=== PATIENT | female | born 1935 | race Caucasian/White ===

== ENCOUNTER 2016-12-23 14:19 | Emergency (ER) | payer OTHER ==
--- NOTE | 2016-12-23 15:02 | EDPHY ---
General - History Smoking Status: Never smoked Narrative: CHIEF COMPLAINT: Fall, facial injury, wrist pain HISTORY OF PRESENT ILLNESS: Patient presents with . She reports a mechanical fall that happened within the past hour to an hour half. [place], landing on the sidewalk. She struck her face on the concrete. She did lose consciousness briefly. She has pain face. She has pain in the left wrist and hand. The facial pain is mild. She does have some bleeding from the mouth. She has no dental pain. She has no neck pain of any kind. Minimal headache. She has severe pain in the left wrist and minimal pain left hand. No numbness of extremities. Some tingling of the left hand. No chest pain. No back pain. No abdominal pain. No saddle anesthesia. No incontinence. No lower extremity complaints. Does take Coumadin for AFib. No other associated complaints or modifying factors. REVIEW OF SYSTEMS: Ten systems reviewed and are negative unless otherwise noted in the HPI PCP: Dr. Bonilla SPECIALISTS: None PAST MEDICAL HISTORY: AFib, hypertension, arthritis PAST SURGICAL HISTORY: None recently or pertinent SOCIAL HISTORY: Nonsmoker. Lives with her near [facility]. Works at [employer] FAMILY HISTORY: Noncontributory EXAMINATION General Appearance: Alert, no distress Head: normocephalic. Abrasions and ecchymosis to the left side of the face. There is lip laceration as below. No Duggan sign. Some ecchymosis around the left periorbital region Eyes: Pupils equal and round, no conjunctival pallor or injection ENT, Mouth: Mucous membranes moist. There are multiple areas of dry blood making the examination difficult. No obvious fracture through the gum line. Airway is patent. No dental fracture noted. Neck: Normal inspection, supple, non-tender. No midline tenderness. No crepitus. No step-off or deformity. Respiratory: Lungs are clear to auscultation. No wheeze, rhonchi or crackles Cardiovascular: Regular rate. Regular rhythm. Gastrointestinal: Abdomen is soft and nontender. No distention. No tympany. No rigidity. Back: No soft tissue tenderness. No midline tenderness. No crepitus, step-off or deformity. Range of motion intact. Neurological: GCS 15. A&O, nonfocal, normal gait. Strength is symmetric. No pronator drift. No dysmetria. Skin: Warm and dry, no rash. Multiple areas of abrasion to the left side of the face forehead. Laceration to the upper lip not involving the vermilion border. 3 cm length. No mucosal laceration noted. Extremities: Tenderness and mild dorsal deformity of the left wrist. There is mild tenderness of the left hand. No tenderness of the left elbow or shoulder. Range of motion of the left upper extremity difficult to test due to pain. Neurovascular intact distal to the pain. Lower extremities range of motion is symmetric. Right upper extremity painless range of motion. Psychiatric: Mood and affect normal DIFFERENTIAL DIAGNOSES: Including but not limited to intracranial hemorrhage, concussion, fracture, contusion, hematoma, sprain, strain MDM: 2:45 p.m. Mechanical fall with facial trauma loss of consciousness. She is awake alert no acute distress but does have outward signs of trauma and does take Coumadin. I have ordered stat CT scans of the head and cervical spine. She has no neck pain of any kind. Plain films of the chest, wrist and hand are pending. She is in no acute distress. 3:30 p.m. Case discussed with Dr. Schofield. No acute findings on the CT scans of the head or cervical spine. Plain films pending. 3:55 p.m. Plain films of the wrist and hand revealed comminuted, contacted distal radial ulnar styloid fractures. There also appears to be a fracture of the base of the thumb. I have re-evaluated the patient. She is neuro intact in this extremity. I will discuss with orthopedist for the recommendation. 4:04 p.m. Case discussed with orthopedist Dr. Jones. He reviewed the x-ray with me. He recommends that we put the patient in a sugar-tong splint and while doing so, slightly applied traction and put the wrist in slight flexion. He does not recommend an attempt to close reduction otherwise. He would like to see the patient in his office Sunday or Sunday. 5:00 p.m. Left upper extremity sugar-tong splint in place. I placed her in slight flexion as instructed by Dr. jones. She is neurovascular intact postprocedure. We discussed follow up with him early this week. We discussed lip laceration wound care. We discussed ED precautions. She is ambulatory without assistance. She will be discharged home stable condition. PROCEDURE: Splint placement Indication: Left distal radial fracture Consent: Verbal Location: Left distal radius and ulnar styloid Description: Sugar-tong splint place with mild flexion. Tolerated well. Neurovascular intact pre and postprocedure. Complications: None PROCEDURE: Infraorbital block Indication: Lip laceration Consent: Verbal Location: Left upper lip Anesthesia: Lidocaine 1% plain, 0.25% Marcaine plain, 5mL Description: The maxillary mucosa was prepped with Hurricaine spray topical. The above was infused infraorbital region after ensuring that the needle was not in a vascular space. Good anesthesia obtained. No complication. Complications: None PROCEDURE: Laceration repair Consent: Verbal Location: Left upper lip, not involving the vermilion border but does traverse into the oral mucosa Length of repair: 3 cm Complexity: Complex Layer involvement: Single Anesthesia: Regional block, infraorbital. 1% lidocaine plain. Irrigation: Extensive Debridement: 6 mL none Procedure description: Following good anesthesia, the wound was copiously irrigated. Wound bed was explored and there is no foreign body noted. No involvement of the vermilion border. Wound borders were approximated well with good hemostasis. Tolerated well without complication. Suture/Staple material: Externally: 6-0 Prolene, 4 simple interrupted sutures. Mucosal layer: 5-0 fast-absorbing gut, 1 simple interrupted Wound care: Routine as discussed Suture/Staple removal: 5-7 Days (Angelito Jessica) The patient was evaluated and managed by the physician retail assistant. I have reviewed this chart and I agree with the findings and plan of care as documented , as indicated by my signature. I am the secondary supervising physician. ( Alix Morley) - Objective Vital Signs: Initial Vital Signs Temperature (C) 36.7 C 12/23/16 14:26 Heart Rate 76 12/23/16 14:26 Respiratory Rate 17 12/23/16 14:26 Blood Pressure 155/75 H 12/23/16 14:26 O2 Sat (%) 97 12/23/16 14:26 O2 Delivery Mode Room Air Allergies/Adverse Reactions: Penicillins Allergy (Verified 12/23/16 14:24) Home Medications: Medication Instructions Recorded ATORVASTATIN CALCIUM [Lipitor 80 80 mg PO DAILY 04/05/10 mg] Antiarthritic Combination No.2 900 mg PO DAILY 04/05/10 [Glucosamine-Chondroitin] Aspirin EC [Aspirin EC 81 mg] 81 mg PO DAILY 04/05/10 Calcium Citrate W/Vit D [Citracal 630 mg PO DAILY 04/05/10 + D] Digoxin [Lanoxin] 0.25 mg PO DAILY 04/05/10 Furosemide [Lasix] 0 mg PO DAILY 04/05/10 MULTI-DAY VITAMINS DAILY 04/05/10 Metoprolol Succinate 50 mg PO DAILY 04/05/10 Mometasone Furoate Nasal [Nasonex] 2 sprays NASAL DAILY 04/05/10 OMEGA-3 FATTY ACIDS/FISH OIL [Fish 1 each PO DAILY 04/05/10 Oil 1,000 Mg Softgel] Potassium 0 mg PO DAILY 04/05/10 WARFARIN SODIUM [Coumadin] 5 mg PO DAILY 04/05/10 amLODIPine BESYLATE [Norvasc 2.5 2.5 mg PO DAILY 04/05/10 mg] Ofloxacin 0.3% [Ocuflox 0.3% (RX)] 1 drops RTEYE 5XD #1 btl 05/19/12 Hydrocodone/APAP 5/325 [[place] 1 - 2 tab PO Q4H PRN #13 tab 12/23/16 5/325 (*)] Medications Given: Discontinued Medications Hydrocodone Bitart/Acetaminophen ([place] 5/325) 1 tab PO EDNOW ONE Stop: 12/23/16 16:18 Last Admin: 12/23/16 16:23 Dose: 1 tab Hydrocodone Bitart/Acetaminophen ([place] 5/325mg Prepack#6) 1 btl TAKEHOME EDNOW ONE Stop: 12/23/16 17:30 Last Admin: 12/23/16 17:47 Dose: 1 btl Benzocaine (Hurricaine Fitzwilliam) 1 each MM EDNOW ONE Stop: 12/23/16 15:48 Last Admin: 12/23/16 15:56 Dose: 1 each Tetanus/Diphtheria Toxoids Adsorbed (Tetanus-Diphtheria Grifols) 0.5 ml IM .ONCE ONE Stop: 12/23/16 16:18 Last Admin: 12/23/16 16:24 Dose: 0.5 ml Departure - Departure Disposition: Home, Routine, Self-Care Clinical Impression: Distal radius fracture, left, Fracture of ulnar styloid, Lip laceration, Closed head injury with brief loss of consciousness Condition: Good Instructions: Hydrocodone/Acetaminophen (By mouth), Care For Your Stitches (ED) , Laceration (ED), Wrist Fracture in Adults (ED), Concussion (ED), Head Injury ( ED) Additional Instructions: 1. Nonweightbearing left upper extremity until seen by Orthopedics 2. Keep your splint in place a left upper extremity until seen by Orthopedics 3. Daily wound care for the lip as discussed in printed 4. Return to ED in 5-7 days for lip laceration suture removals 5. Ice and elevate the extremity often 6. ED precautions as discussed Referrals: Roby Jones MD [Medical Doctor] - As per Instructions Stand Alone Forms: Work Excuse Prescriptions: Hydrocodone/APAP 5/325 [[place] 5/325 (*)] 1 - 2 tab PO Q4H PRN #13 tab PRN Reason: Pain, Moderate
[2016-12-23] MEDS ORDERED: BENZOCAINE UNIT DOSE SPRAY HURRICAINE MM ONE ×2 (15:47)
[2016-12-23] MEDS ORDERED: HYDROCODONE/APAP 5/325 TAB PO ONE (16:17)
[2016-12-23] MEDS ORDERED: TETANUS, DIPHTHERIA TOX (7YR+) 0.5 ML INJ IM ONE (16:17)
[2016-12-23] MEDS ORDERED: HYDROCOD/APAP 5/325 PREPACK#6 BTL TAKEHOME ONE (17:29)
[2016-12-23 18:04] VITALS: BP 157/89; PULSE 67; RESP 18; TEMP 98.2; O2SAT 94
== END 2016-12-23 18:02 | disposition home or self-care (01) ==
PROC: 0CQ0XZZ Repair Upper Lip, External Approach (ICD-10-PCS; principal; 2016-12-23)
DX: S52.502A Unspecified fracture of the lower end of left radius, initial encounter for closed fracture (principal); S52.612A Displaced fracture of left ulna styloid process, initial encounter for closed fracture; S01.511A Laceration without foreign body of lip, initial encounter; I10 Essential (primary) hypertension; Z23 Encounter for immunization; W10.1XXA Fall (on)(from) sidewalk curb, initial encounter; Y92.480 Sidewalk as the place of occurrence of the external cause; Y99.8 Other external cause status; Y93.01 Activity, walking, marching and hiking
CPT/HCPCS: 12052; 70450; 71010; 72125; 73110; 73130; 90471; 90714; 99285; A4565